=== PATIENT | female | born 1985 | race Asian ===

== ENCOUNTER 2021-06-03 08:56 | Emergency (ER) | payer OTHER ==
[~2021-06-03] VITALS: Ht 165.1 cm; Wt 63.5 kg
[2021-06-03 09:09] VITALS: BP_SYST 131
[2021-06-03 09:34] LABS: BASOPHILS % (AUTO) 0.4 % (0.0-2.0); EOSINOPHILS % (AUTO) 0.5 % (0.0-4.0); LYMPHOCYTES # (AUTO) 1.4 K/uL (1.0-5.5); LYMPHOCYTES % (AUTO) 17.8 % (20.5-51.5); MEAN CORPUSCULAR HEMOGLOBIN 30 pg (27-31); MEAN CORPUSCULAR HGB CONC 34 % (32-36); MEAN CORPUSCULAR VOLUME 87 fL (79.0-98.0); MONOCYTES # (AUTO) 0.4 K/uL (0.0-1.0); MONOCYTES % (AUTO) 5.1 % (1.7-9.3); NEUTROPHILS # (AUTO) 5.9 K/uL (1.8-7.7); NEUTROPHILS % (AUTO) 76.2 % (40.0-70.0); PLATELET COUNT (AUTO) 242 K/uL (130-430); RED BLOOD CELL COUNT(AUTO) 4.03 MIL/uL (4.2-6.2); RED CELL DISTRIBUTION WIDTH 13.7 % (9.0-15.0); WHITE BLOOD COUNT (AUTO) 7.7 K/uL (4.8-10.8)
[2021-06-03 10:51] LABS: BILIRUBIN,URINE NEGATIVE (NEGATIVE); BLOOD, URINE 2+ (NEGATIVE); CLARITY/URINE CLEAR (CLEAR); COLOR,URINE YELLOW (YELLOW); GLUCOSE,URINE 2+ (NEGATIVE); KETONES,URINE TRACE (NEGATIVE); LEUKOCYTE ESTERASE ,URINE TRACE (NEGATIVE); NITRITE, URINE NEGATIVE (NEGATIVE); PH,URINE 7.5 (5.0-8.0); PROTEIN URINE NEGATIVE (NEGATIVE); UROBILINOGEN,URINE 0.2 (0.2-1.0)
[2021-06-03 11:06] LABS: BACTERIA,URINE FEW /HPF (None Seen)
[2021-06-03] MEDS ORDERED: CEPH250C PO (11:13)
[2021-06-03 12:48] VITALS: BP_SYST 131
== END 2021-06-03 12:48 | disposition home or self-care (01) ==
LOC: SED 08:56
DX: O20.0 Threatened abortion (principal); R82.71 Bacteriuria; Z88.8 Allergy status to other drugs, medicaments and biological substances; Z79.899 Other long term (current) drug therapy; Z3A.14 14 weeks gestation of pregnancy
CPT/HCPCS: 36415; 76805-TC; 81000; 81025; 84702; 85025; 86886; 86900; 86901; 99284